=== PATIENT | female | born 1960 | race Caucasian/White ===

== ENCOUNTER 2016-10-19 16:02 | Emergency (ER) | payer MEDICARE, OTHER ==
[~2016-10-19] VITALS: Ht 157.5 cm; Wt 113.4 kg
[~2016-10-19 16:02] MED LIST: CITA10TA4 PO; CLON0.5T20 PO; NAPR550T PO; ORPH100T PO
[2016-10-19] MEDS ORDERED: ASPIRIN 325 MG TABLET PO ONE (16:30)
[2016-10-19] MEDS ORDERED: NITROGLYCERIN SUBLINGUAL 0.4 MG BOTTLE OF 25. SL PRN (16:30)
[2016-10-19 16:38] LABS: BASO # 0.1 x10^3/uL (0.0-0.2); BASO % 1 % (0-3); EOS % 2 % (0-3); HEMATOCRIT 41.9 % (36.0-47.0); HEMOGLOBIN 13.8 g/dL (12.0-15.5); LYMPH # 2.5 x10^3/uL (1.0-4.8); LYMPH % 30 % (24-48); MEAN CORPUSCULAR HEMOGLOBIN 31 pg (25-35); MEAN CORPUSCULAR HGB CONC 33 g/dL (31-37); MEAN CORPUSCULAR VOLUME 93 fL (79-100); MONO % 5 % (0-9); NEUT % 63 % (31-73); PLATELET COUNT 291 x10^3/uL (140-400); RED BLOOD COUNT 4.52 x10^6/uL (3.50-5.40); RED CELL DISTRIBUTION WIDTH 14.2 % (11.5-14.5); WHITE BLOOD COUNT 8.3 x10^3/uL (4.0-11.0)
[2016-10-19 16:47] LABS: PROTHROMBIN TIME PATIENT 12.3 SEC (11.7-14.0)
[2016-10-19 16:55] LABS: CALCIUM 8.3 mg/dL (8.5-10.1); CREATININE 0.8 mg/dL (0.6-1.0); GFR 73.7
[2016-10-19 16:59] LABS: ALBUMIN 3.1 g/dL (3.4-5.0); ALBUMIN/GLOBULIN RATIO 0.7 (1.0-1.7); MAGNESIUM 2.7 mg/dL (1.8-2.4); TOTAL BILIRUBIN 0.4 mg/dL (0.2-1.0); TOTAL PROTEIN 7.3 g/dL (6.4-8.2)
[2016-10-19 17:30] VITALS: BP 154/84
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
--- NOTE | 2016-10-19 18:24 | EKG ---
[facility] [address] [place] [address] Test Date: 2016-10-19 Test Time: 16:14:02 Pat Name: RICK BERRY Department: Room: Gender: F Social Security Assessor: : 1960 Requested By: ZOHAIB GARCIA Order Number: [id number] Reading MD: Measurements Intervals [place] Rate: 67 P: 43 [place]: 176 QRS: 15 QRSD: 74 T: 62 QT: 452 QTc: 481 Interpretive Statements SINUS RHYTHM LOW LIMB LEAD VOLTAGE QRS(T) CONTOUR ABNORMALITY CONSISTENT WITH ANTEROSEPTAL INFARCT AGE UNDETERMINED CONSIDER INFERIOR MYOCARDIAL DAMAGE RI6.01 Unconfirmed report No previous ECG available for comparison
--- NOTE | 2016-10-20 09:45 | RAD ---
AP portable chest radiograph 10/19/2016 Clinical History: Mid chest pain. An AP portable erect digital radiograph of the chest was obtained. Comparison study is dated 06/23/2015. The cardiac silhouette is borderline enlarged. The thoracic aorta is mildly tortuous. No acute pulmonary infiltrate is seen. No pleural effusion or pneumothorax is noted. Degenerative changes are seen involving the thoracic spine and both shoulders. Impression: No acute abnormality is seen.
== END 2016-10-19 18:00 | disposition home or self-care (01) ==
LOC: ER 16:02
DX: R07.2 Precordial pain (principal); R06.02 Shortness of breath; M79.89 Other specified soft tissue disorders; E03.9 Hypothyroidism, unspecified; I10 Essential (primary) hypertension; I25.2 Old myocardial infarction; J44.9 Chronic obstructive pulmonary disease, unspecified; K21.9 Gastro-esophageal reflux disease without esophagitis; F32.9 Major depressive disorder, single episode, unspecified; F41.9 Anxiety disorder, unspecified; Z90.49 Acquired absence of other specified parts of digestive tract
CPT/HCPCS: 36415; 71010; 80053; 83735; 83880; 84484; 85025; 85610; 85730; 93005; 99285-25

== ENCOUNTER 2017-01-26 19:00 | Inpatient (IN) | payer OTHER ==
[~2017-01-26] VITALS: Ht 160 cm; Wt 99.5 kg
[~2017-01-26 19:00] MED LIST changes: +NAPR-682 PO; -NAPR550T PO
[2017-01-26] MEDS ORDERED: IV NORMAL SALINE 1000ML BAG 1,000 ML IV SCH (19:05)
[2017-01-26] MEDS ORDERED: HYDROmorphone 2 MG/ML VIAL IV ONE (19:15)
[2017-01-26] MEDS ORDERED: 0.9 % SODIUM CHLORIDE 10 ML DISP.SYRIN. IV PRN (19:15)
[2017-01-26] MEDS ORDERED: IPRATRPIUM/ALBUTEROL 0.5/2.5MG 3 ML NEBU. NEB ONE (19:15)
[2017-01-26] MEDS ORDERED: methylPREDNISolone SOD SUCC PF 125 MG/2 ML VIAL. IV ONE (19:15)
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
[2017-01-26 19:24] LABS: BASO # 0.1 x10^3/uL (0.0-0.2); BASO % 1 % (0-3); EOS % 1 % (0-3); HEMATOCRIT 43.2 % (36.0-47.0); HEMOGLOBIN 14.5 g/dL (12.0-15.5); LYMPH # 2.7 x10^3/uL (1.0-4.8); LYMPH % 30 % (24-48); MEAN CORPUSCULAR HEMOGLOBIN 31 pg (25-35); MEAN CORPUSCULAR HGB CONC 34 g/dL (31-37); MEAN CORPUSCULAR VOLUME 91 fL (79-100); MONO % 7 % (0-9); NEUT % 61 % (31-73); PLATELET COUNT 338 x10^3/uL (140-400); RED BLOOD COUNT 4.72 x10^6/uL (3.50-5.40); RED CELL DISTRIBUTION WIDTH 13.6 % (11.5-14.5); WHITE BLOOD COUNT 9.2 x10^3/uL (4.0-11.0)
[2017-01-26 19:27] LABS: BILIRUBIN,URINE NEGATIVE (NEG); GLUCOSE,URINE NEGATIVE (NEG); NITRITE,URINE NEGATIVE (NEG); PH,URINE 7.5; PROTEIN,URINE NEGATIVE (NEG-TRACE)
[2017-01-26 19:32] LABS: RBC,URINE RARE /HPF (0-2)
[2017-01-26 19:33] LABS: BACTERIA,URINE MANY /HPF (0-FEW); SQUAMOUS EPITHELIAL CELL,UR MOD /LPF; WBC,URINE OCC /HPF (0-4)
[2017-01-26 19:38] LABS: ANION GAP 10 (6-14); BLOOD UREA NITROGEN 5 mg/dL (7-20); CALCIUM 7.8 mg/dL (8.5-10.1); CARBON DIOXIDE 26 mmol/L (21-32); CHLORIDE 105 mmol/L (98-107); CREATININE 0.6 mg/dL (0.6-1.0); GFR 102.7; GLUCOSE 108 mg/dL (70-99); POTASSIUM 3.4 mmol/L (3.5-5.1); SODIUM 141 mmol/L (136-145)
[2017-01-26 19:43] LABS: ALBUMIN 2.9 g/dL (3.4-5.0); ALK PHOS 63 U/L (46-116); ALT (SGPT) 16 U/L (14-59); AST (SGOT) 11 U/L (15-37); DIRECT BILIRUBIN < 0.1 mg/dL (0.0-0.2); MAGNESIUM 2.3 mg/dL (1.8-2.4); TOTAL BILIRUBIN 0.2 mg/dL (0.2-1.0); TOTAL PROTEIN 6.9 g/dL (6.4-8.2)
[2017-01-26 19:51] LABS: CKMB MASS < 0.5 ng/mL (0.0-3.6); CREATINE KINASE 48 U/L (26-192)
[2017-01-26] MEDS ORDERED: ONDANSETRON PF 4 MG/2 ML VIAL. IV PRN (20:15)
[2017-01-26] MEDS ORDERED: NITROGLYCERIN SUBLINGUAL 0.4 MG BOTTLE OF 25. SL PRN (20:15)
[2017-01-26] MEDS ORDERED: fentaNYL PF VIAL 100 MCG/2 ML VIAL IV PRN (20:15)
[2017-01-26] MEDS ORDERED: ACETAMINOPHEN 325 MG TABLET. PO PRN (20:15)
[2017-01-26 22:07] VITALS: BP 160/86
[2017-01-26 22:08] VITALS: BP 160/86
[2017-01-26] MEDS ORDERED: INFLUENZA VAX SCREEN BY RX. MC ONE (22:15)
[2017-01-26] MEDS ORDERED: PNEUMOCOCCAL VAX SCREEN BY RX. MC ONE (22:15)
[2017-01-26] MEDS ORDERED: CLON0.5T PO (22:22)
[2017-01-26] MEDS ORDERED: CLON1TAB PO (22:22)
[2017-01-26] MEDS ORDERED: ATOR40TA59 PO (22:25)
[2017-01-26] MEDS ORDERED: PANT40TA5 PO (22:25)
[2017-01-26] MEDS ORDERED: LEVO175T5 PO (22:25)
[2017-01-26] MEDS ORDERED: PROVENTIL HFA6.7 GM IH (22:26)
[2017-01-26] MEDS ORDERED: clonazePAM 1 MG TABLET PO ONE (23:00)
[2017-01-26] MEDS ORDERED: POTASSIUM CHLORIDE 20 MEQ TABLET.ER. PO ONE (23:00)
[2017-01-26] MEDS: IV NORMAL SALINE 1000ML BAG 1,000 ML IV SCH (23:08)
[2017-01-26] MEDS: NICOTINE 14MG PATCH. TD SCH (23:08)
[2017-01-27 03:38] VITALS: BP 133/61
[2017-01-27] MEDS: IV NORMAL SALINE 1000ML BAG 1,000 ML IV SCH ×2 (04:12→07:16)
--- NOTE | 2017-01-27 06:12 | EKG ---
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
[2017-01-27 07:00] VITALS: BP 134/70
[2017-01-27] MEDS: IPRATRPIUM/ALBUTEROL 0.5/2.5MG 3 ML NEBU. NEB SCH ×2 (07:27→11:22)
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
[2017-01-27] MEDS ORDERED: ALBUTEROL SULFATE 2.5 MG/3 ML NEBU. NEB PRN (08:15)
--- NOTE | 2017-01-27 08:27 | RAD ---
EXAM: Chest one view. HISTORY: Shortness of breath, chest pain, chronic obstructive pulmonary disease. COMPARISON: 10/19/2016. FINDINGS: A frontal view of the chest is obtained. Mild interstitial opacities in the bases are not clearly changed and likely represent scarring. Bone aorta There is no pneumothorax or pleural effusion. The heart is not enlarged. IMPRESSION: 1. Mild basilar scarring. No confluent infiltrates.
[2017-01-27] MEDS ORDERED: LEVOTHYROXINE 175 MCG TABLET PO SCH (08:30)
[2017-01-27 08:31] LABS: CALCIUM 8.3 mg/dL (8.5-10.1); CREATININE 0.7 mg/dL (0.6-1.0); GFR 85.9; POTASSIUM 4.2 mmol/L (3.5-5.1)
[2017-01-27 08:43] LABS: CHOLESTEROL/HDL RATIO 6.3
[2017-01-27] MEDS ORDERED: CITALOPRAM 10 MG TABLET. PO SCH (09:00)
[2017-01-27] MEDS ORDERED: PANTOPRAZOLE 40 MG TABLET.DR. PO SCH (09:00)
[2017-01-27] MEDS ORDERED: PNEUMOC CONJ VACC 23-VALENT 0.5 ML VIAL. VAX IM ONE (09:00)
[2017-01-27] MEDS ORDERED: clonazePAM 0.5 MG TABLET PO SCH (09:00)
[2017-01-27] MEDS ORDERED: FLU VACC QS2017-18 (36MOS+)/PF 0.5 ML SYRINGE. VAX IM ONE (09:00)
[2017-01-27] MEDS ORDERED: LISINOPRIL 20 MG TABLET PO SCH (09:00)
[2017-01-27] MEDS: NICOTINE 14MG PATCH. TD SCH (09:12)
[2017-01-27 11:00] VITALS: BP 117/70
[2017-01-27] MEDS ORDERED: CLON1TAB3 PO (11:51)
[2017-01-27] MEDS ORDERED: CLON0.5T3 PO (11:51)
[2017-01-27] MEDS ORDERED: CITA40TA5 PO (11:51)
[2017-01-27] MEDS ORDERED: LISI-334 PO (11:51)
[2017-01-27] MEDS ORDERED: ATORVASTATIN CA80 MG PO (11:51)
[2017-01-27] MEDS ORDERED: NITR100C PO (11:54)
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
[2017-01-27] MEDS ORDERED: ATORVASTATIN CALCIUM 40 MG TABLET. PO SCH (21:00)
[2017-01-27] MEDS ORDERED: clonazePAM 1 MG TABLET PO SCH (21:00)
== END 2017-01-27 13:30 | disposition home or self-care (01) | DRG 690 ==
LOC: ER 19:00 → 2 NORTH 20:21
PROVIDERS: ADMIT Family Medicine; ATTEND Family Medicine
DX: N39.0 Urinary tract infection, site not specified (principal); E44.1 Mild protein-calorie malnutrition; R07.89 Other chest pain; E03.9 Hypothyroidism, unspecified; E78.5 Hyperlipidemia, unspecified; F17.210 Nicotine dependence, cigarettes, uncomplicated; F32.9 Major depressive disorder, single episode, unspecified; F40.00 Agoraphobia, unspecified; I10 Essential (primary) hypertension; E87.6 Hypokalemia; J44.9 Chronic obstructive pulmonary disease, unspecified; K21.9 Gastro-esophageal reflux disease without esophagitis; Z80.3 Family history of malignant neoplasm of breast; Z80.8 Family history of malignant neoplasm of other organs or systems; Z82.49 Family history of ischemic heart disease and other diseases of the circulatory system; Z82.5 Family history of asthma and other chronic lower respiratory diseases; Z83.3 Family history of diabetes mellitus; Z68.38 Body mass index [BMI] 38.0-38.9, adult; Z90.49 Acquired absence of other specified parts of digestive tract; R73.03 Prediabetes
CPT/HCPCS: 36415; 71010; 80048; 80061; 80076; 81001; 82553; 83690; 83735; 83880; 84443; 84484; 85025; 87086; 90686; 90732; 93005; 94250; 94640; 96361; 96374; 96375; J1170; J2060; J2930; J7030; J7620; 99291-25

== ENCOUNTER 2017-05-22 20:25 | Emergency (ER) | payer OTHER, MEDICARE ==
[2017-05-22 21:13] LABS: ADD MAN DIFF? NO
[2017-05-22 21:15] LABS: BASO # 0.1 x10^3/uL (0.0-0.2); BASO % 1 % (0-3); EOS # 0.1 x10^3/uL (0.0-0.7); EOS % 1 % (0-3); HEMATOCRIT 43.2 % (36.0-47.0); HEMOGLOBIN 14.6 g/dL (12.0-15.5); LYMPH # 2.2 x10^3/uL (1.0-4.8); LYMPH % 25 % (24-48); MEAN CORPUSCULAR HEMOGLOBIN 30 pg (25-35); MEAN CORPUSCULAR HGB CONC 34 g/dL (31-37); MEAN CORPUSCULAR VOLUME 88 fL (79-100); MONO # 0.5 x10^3/uL (0.0-1.1); MONO % 6 % (0-9); NEUT # 5.8 x10^3uL (1.8-7.7); NEUT % 67 % (31-73); PLATELET COUNT 327 x10^3/uL (140-400); RED BLOOD COUNT 4.89 x10^6/uL (3.50-5.40); RED CELL DISTRIBUTION WIDTH 14.5 % (11.5-14.5); WHITE BLOOD COUNT 8.6 x10^3/uL (4.0-11.0)
[2017-05-22 21:28] LABS: ANION GAP 6 (6-14); BLOOD UREA NITROGEN 7 mg/dL (7-20); BUN/CREATININE RATIO 10 (6-20); CALCIUM 8.2 mg/dL (8.5-10.1); CARBON DIOXIDE 27 mmol/L (21-32); CHLORIDE 108 mmol/L (98-107); CREATININE 0.7 mg/dL (0.6-1.0); GFR 85.6; GLUCOSE 106 mg/dL (70-99); POTASSIUM 3.5 mmol/L (3.5-5.1); SODIUM 141 mmol/L (136-145)
[2017-05-22 21:34] LABS: ALBUMIN/GLOBULIN RATIO 0.7 (1.0-1.7); ALK PHOS 69 U/L (46-116); ALT (SGPT) 17 U/L (14-59); AST (SGOT) 11 U/L (15-37); TOTAL BILIRUBIN 0.2 mg/dL (0.2-1.0); TOTAL PROTEIN 7.2 g/dL (6.4-8.2)
[2017-05-22 21:36] LABS: TROPONINI < 0.017 ng/mL (0.000-0.055)
[2017-05-22 21:39] LABS: NT-PRO BNP 73 pg/mL (0-124)
[2017-05-22 23:10] LABS: INFLUENZA A PATIENT NEGATIVE (NEGATIVE); INFLUENZA B PATIENT NEGATIVE (NEGATIVE); OBC FLU VALID
[2017-05-22] MEDS: IPRATRPIUM/ALBUTEROL 0.5/2.5MG 3 ML NEBU. NEB (23:49)
[2017-05-23] MEDS: predniSONE 20 MG TABLET PO (00:03)
== END 2017-05-23 00:05 | disposition home or self-care (01) ==
LOC: ER 05-23 00:05
DX: J44.1 Chronic obstructive pulmonary disease with (acute) exacerbation (principal); K21.9 Gastro-esophageal reflux disease without esophagitis; E78.00 Pure hypercholesterolemia, unspecified; E03.9 Hypothyroidism, unspecified; E05.90 Thyrotoxicosis, unspecified without thyrotoxic crisis or storm; I10 Essential (primary) hypertension; F17.200 Nicotine dependence, unspecified, uncomplicated
CPT/HCPCS: 36415; 71046; 80053; 83880; 84484; 85025; 87804; 87804-59; 93005; 94640; 99285-25; J7512; J7620